=== PATIENT | male | born 1965 | race Caucasian/White ===

== ENCOUNTER → 2016-11-25 | Outpatient (CLI) | payer OTHER ==
[~2016-11-25] MED LIST: ERGOCALCIF50000 UNIT PO; VITAMIN B122500 MCG PO
== END | disposition home or self-care (01) ==
LOC: PICC 07:57
DX: B96.5 Pseudomonas (aeruginosa) (mallei) (pseudomallei) as the cause of diseases classified elsewhere (principal); A49.1 Streptococcal infection, unspecified site; S91.309D Unspecified open wound, unspecified foot, subsequent encounter
CPT/HCPCS: 76937